=== PATIENT | male | born 1995 | race Caucasian/White ===

== ENCOUNTER 2019-02-05 20:08 | Inpatient (IN) | payer OTHER ==
[~2019-02-05] VITALS: Ht 177.8 cm; Wt 90.7 kg
[2019-02-05 20:16] VITALS: BP 156/81
[2019-02-05] MEDS ORDERED: ZOFRAN ODT4 MG DISSOLVE (20:25)
[2019-02-05 20:44] LABS: HEMATOCRIT 54.3 % (42.0-52.0); HEMOGLOBIN 18.4 gm/dL (14.0-18.0); MCH 30.9 pg (26.0-34.0); MCHC 33.9 g/dL (28.0-37.0); MCV 91.2 fL (80.0-100.0); MPV 10.1 fl. (7.2-11.1); RBC 5.96 mil/uL (4.50-6.00); RDW-CV 13.6 % (10.5-14.5); WBC 14.4 thou/uL (4.0-11.0)
[2019-02-05 20:52] LABS: APTT 30.5 Seconds (25.0-31.3); INR 1.1; PROTIME 11.2 Seconds (9.20-11.50)
[2019-02-05 21:00] LABS: CALCIUM 10.7 mg/dL (8.5-10.1); CREATININE 2.6 mg/dL (0.6-1.3); POTASSIUM 4.4 mmol/L (3.5-5.1)
[2019-02-05 21:04] LABS: ALBUMIN 5.9 g/dL (3.4-5.0); MAGNESIUM 2.3 mg/dL (1.8-2.4); TOTAL BILIRUBIN 0.8 mg/dL (<0.1-1.0)
[2019-02-05 21:30] VITALS: BP 145/79
[2019-02-05 22:35] VITALS: BP 134/76
[2019-02-06 07:58] LABS: CREATININE 1.2 mg/dL (0.6-1.3); MAGNESIUM 2.1 mg/dL (1.8-2.4); POTASSIUM 3.7 mmol/L (3.5-5.1)
[2019-02-06 08:00] VITALS: BP 126/72
[2019-02-06 10:38] VITALS: BP 134/76
== END 2019-02-06 11:00 | disposition home or self-care (01) | DRG 922 ==
LOC: M.ERS 20:08 → M.TBA-ER 21:12 → M.ORTHSURG 22:47
PROVIDERS: Emergency Medicine Emergency Medical Services; Internal Medicine; ADMIT Family Medicine
DX: T67.5XXA Heat exhaustion, unspecified, initial encounter (principal); N17.0 Acute kidney failure with tubular necrosis; R65.10 Systemic inflammatory response syndrome (SIRS) of non-infectious origin without acute organ dysfunction; X58.XXXA Exposure to other specified factors, initial encounter; E86.9 Volume depletion, unspecified; Y93.89 Activity, other specified; Y92.89 Other specified places as the place of occurrence of the external cause; Y99.8 Other external cause status